=== PATIENT | female | born 2000 | race Caucasian/White ===

== ENCOUNTER 2022-12-19 22:00 | Emergency (ER) | payer OTHER, SELFPAY ==
[2022-12-19 22:08] VITALS: BP 155/106; PULSE 127; RESP 17; TEMP 37.2; O2SAT 98; BMI 43.2
--- NOTE | 2022-12-19 22:41 | HMH.EDGENADL ---
Discharge Plan Disposition Patient Disposition: Home, Self-Care Prescriptions Prescriptions: New ciprofloxacin HCl 0.2 % dropperette 5 drp otic (ear) BID 7 Days Qty: 14 0RF No Action amoxicillin 875 MG tablet 875 mg PO Q12H Qty: 20 0RF Referrals Follow up/Referrals: Jeannie Limon APRN [Primary Care Provider] - See instructions Activity Restrictions/Add. Instructions Additional Instructions/Restrictions: Call your family doctor to establish care for this visit to the emergency department and schedule follow-up within 48 hours to ensure improvement. If you have any worsening of your condition or any other concerning signs or symptoms, return to the emergency department or your primary care doctor for further evaluation. Clinical Impressions Clinical Impression: Otitis externa Qualifiers: Otitis externa type: diffuse Chronicity: acute Laterality: right Qualified Code(s): H60.311 - Diffuse otitis externa, right ear Discharge ED Provider: Yong Avina General Adult HPI General Chief complaint: Ear Stated complaint: R ear pain Time Seen by Provider: 12/19/22 22:07 Mode of Arrival: Family Vehicle Source of Information: Patient Limitations: No Limitations Description of Symptoms (Recalled from ER Triage Doc. by RN): right ear pain for >1 month. states mild swelling underneath ear. low grade fever. History of Present Illness HPI narrative: 22-year-old female with history of numerous ear infections presenting with right ear pain. Patient states she had intermittent right and left ear pain for the last couple of months. Today, having right-sided ear pain. Hurts with application of pressure. No fevers or chills, but patient having hearing deficits such as buzzing and whooshing sounds. No ear drainage. Patient denies sore throat, trauma, or any other concerns. Does not clean her ears with cotton swabs Related Data Previous Rx's Medication Instructions Recorded amoxicillin 875 mg tablet 875 mg PO Q12H #20 tabs 04/14/18 ciprofloxacin HCl 0.2 % ear drops 5 drp otic (ear) BID 7 days #14 ea 12/19/22 in a dropperette Allergies Allergy/AdvReac Type Severity Reaction Status Date / Time No Known Allergies Allergy Verified 04/14/18 12:17 [facility] Disclaimer: The information contained in this section may have been updated after the patient was seen, as this information can be updated by other users. Social History Smoking Status: Unknown if ever smoked second hand exposure: No alcohol intake: never current occupational status: employed Travel in the last 8 weeks: None ROS Obtained: Yes All systems reviewed & no additional complaints except as documented Physical Exam General General appearance: alert, in no apparent distress and other ( ) Head Head exam: atraumatic and normocephalic Eye Eye exam: Present normal appearance, PERRL and EOMI ENT ENT exam: Present mucous membranes moist Neck Neck exam: Present normal inspection, full ROM and trachea midline Respiratory Respiratory exam: Absent respiratory distress, wheezes, stridor, accessory muscle use or prolonged expiratory phase Cardiovascular Cardiovascular exam: Present regular rate and normal rhythm Abdominal Exam Abdominal exam: Present soft; Absent distention, tenderness, guarding, rebound, rigidity or normal bowel sounds Extremities Exam Extremities exam: Absent edema Neurological Exam Neurological exam: Present alert, oriented X3, CN II-XII intact and normal gait; Absent motor sensory deficit Skin Skin exam: Present warm and dry; Absent diaphoresis or erythema Medical Decision Making Medical Records Medical records reviewed: Yes I reviewed the patient's medical records. Morgan Inquiry Pt receiving controlled substance: No Morgan was queried for this patient: No Vital Signs: 12/19/22 22:08 12/19/22 23:05 Temperature 99.0 F 98.9 F Temperature Source Oral Pulse Rate 122 H Pulse Rate [Left Brachial] 127 H
[2022-12-19 23:05] VITALS: BP 168/116; PULSE 122; RESP 18; TEMP 37.2; O2SAT 100
--- NOTE | 2022-12-19 23:08 | PC.NURSE ---
I spoke with Dr. Avina about pts admission and d/c vitals. states he is okay with going ahead and discharging the pt due to the patients pain.
== END 2022-12-19 23:11 | disposition home or self-care (01) ==
PROVIDERS: Emergency Provider Emergency Medicine; PCP Nurse Practitioner Family
DX: H60.311 Diffuse otitis externa, right ear (principal)
CPT/HCPCS: 99283

== ENCOUNTER 2023-08-11 09:23 | Outpatient (CLI) | payer OTHER, SELFPAY ==
[2023-08-11 10:08] LABS: Basophils # 0.1 K/mm3 (0-0.2); Eosinophils # 0.3 K/mm3 (0.0-0.4); Eosinophils % 2.6 % (0.1-12.0); Hematocrit 43.8 % (37.0-47.0); Hemoglobin 14.1 g/dL (12.2-16.2); Lymphocytes # 2.9 K/mm3 (0.7-4.5); Lymphocytes % 26.1 % (10-50); Mean Corpuscular HGB Conc 32.3 g/dL (31.8-35.4); Mean Corpuscular Hemoglobin 30.7 pg (27.0-31.2); Mean Corpuscular Volume 94.9 fl (81-99); Monocytes # 0.5 K/mm3 (0.1-1.0); Monocytes % 4.4 % (1.7-9.3); Neutrophils # 7.4 K/mm3 (1.8-7.8); Platelet Count 391 K/mm3 (142-424); Red Blood Count 4.61 M/mm3 (4.20-5.40); Red Cell Distribution Width 13.2 % (11.5-17.5); White Blood Count 11.1 K/mm3 (4.8-10.8)
[2023-08-11 11:02] LABS: Hemoglobin A1C 5.4 % (4.0-6.0)
[2023-08-11 11:21] LABS: Alanine Aminotransferase 57 U/L (12-78); Albumin Level 4.7 g/dl (3.5-5.0); Albumin/Globulin Ratio 1.6 (1.1-1.8); Alkaline Phosphatase 64 U/L (38-126); Anion Gap 13.4 mEq/L (5-15); Aspartate Amino Transferase 33 U/L (14-36); Bilirubin,Total 0.6 mg/dl (0.2-1.3); Blood Urea Nitrogen 10 mg/dl (7-17); Carbon Dioxide 25 mmol/L (22.0-30.0); Chloride 107 mmol/L (98-107); Estimated Glomerular Filt Rate 106 ml/min (>60); GFR (African American) 128 ML/MIN (>60); Globulin 2.9 g/dL (1.3-3.2); Glucose 82 mg/dl (74-100); Potassium 4.4 mmoL/L (3.5-5.1); Sodium 141 mmol/L (136-145); Total Protein,Serum 7.6 g/dl (6.3-8.2)
[2023-08-11 11:49] LABS: Thyroid Stimulating Hormone 2.02 uIU/mL (0.465-4.68)
[2023-08-12 08:07] LABS: Prolactin 10.5 ng/mL (4.8-33.4)
[2023-08-12 08:16] LABS: Estradiol 45.9 pg/mL (.); FSH 6.2 mIU/mL (.); LH 7.4 mIU/mL (.); Testosterone,Total 42 ng/dL (13-71)
== END 2023-08-11 23:59 | disposition home or self-care (01) ==
LOC: LAB 09:24
PROVIDERS: PCP Nurse Practitioner Family; Visit Provider Obstetrics & Gynecology
DX: E28.2 Polycystic ovarian syndrome (principal); Z31.9 Encounter for procreative management, unspecified
CPT/HCPCS: 36415; 80053; 82626; 82670; 83001; 83002; 83036; 83498; 84146; 84403; 84443; 85025

== ENCOUNTER 2023-08-18 09:44 | Outpatient (CLI) | payer OTHER, SELFPAY ==
--- NOTE | 2023-08-18 09:44 | US_ITS ---
PROCEDURE: US TRANSVAGINAL CLINICAL INDICATION: infertility COMPARISON: No exams were available for comparison FINDINGS: Transvaginal sonographic images of the pelvis were obtained. UTERUS: 6.8 cm x 4.6 cmx 3.3cm anteverted with a combined endometrial thickness of 8.8mm. There is a small nabothian cyst in the cervix. LEFT OVARY: 2.9 cmx2.5cmx3.1cm with a volume of 11.7ml. There are multiple small peripheral follicles. RIGHT OVARY: 2.6 cmx 1.8 cmx3.1cm with a volume of 7.6ml. There are multiple small peripheral follicles. Both ovaries are seen and appear polycystic. Doppler flow to both ovaries are seen. There is no fluid in the cul-de-sac. IMPRESSION: 1. Anteverted uterus normal in shape and size. The endometrium appears normal. 2. Both ovaries have a polycystic appearance. 3. No fluid in the cul-de-sac. Dictated by: Héctor Carter MD 08/18/2023 17:56 Héctor Carter MD in OV 08/18/2023 17:56
== END 2023-08-18 23:59 | disposition home or self-care (01) ==
LOC: RAD 09:44
PROVIDERS: PCP Nurse Practitioner Family; Visit Provider Obstetrics & Gynecology
DX: Z31.9 Encounter for procreative management, unspecified (principal); N92.6 Irregular menstruation, unspecified
CPT/HCPCS: 76830

== ENCOUNTER 2023-10-17 09:39 | Outpatient (CLI) | payer OTHER, SELFPAY ==
[2023-10-17 10:34] LABS: Alanine Aminotransferase 38 U/L (12-78); Albumin Level 4.6 g/dl (3.5-5.0); Albumin/Globulin Ratio 1.3 (1.1-1.8); Alkaline Phosphatase 50 U/L (38-126); Anion Gap 11.6 mEq/L (5-15); Aspartate Amino Transferase 35 U/L (14-36); Bilirubin,Total 0.7 mg/dl (0.2-1.3); Blood Urea Nitrogen 14 mg/dl (7-17); Calcium 9.8 mg/dl (8.4-10.2); Carbon Dioxide 24 mmol/L (22.0-30.0); Chloride 106 mmol/L (98-107); Estimated Glomerular Filt Rate 105 ml/min (>60); GFR (African American) 127 ML/MIN (>60); Globulin 3.5 g/dL (1.3-3.2); Glucose 85 mg/dl (74-100); Potassium 4.6 mmoL/L (3.5-5.1); Sodium 137 mmol/L (136-145); Total Protein,Serum 8.1 g/dl (6.3-8.2)
[2023-10-17 11:05] LABS: Thyroid Stimulating Hormone 3.29 uIU/mL (0.465-4.68)
[2023-10-18 08:21] LABS: FSH 6.8 mIU/mL (.); Progesterone 0.3 ng/mL (.)
[2023-10-18 19:13] LABS: Insulin Level Total 16.6 uIU/mL (2.6-24.9)
== END 2023-10-17 23:59 | disposition home or self-care (01) ==
LOC: LAB 09:40
PROVIDERS: PCP Nurse Practitioner Family; Visit Provider Obstetrics & Gynecology
DX: E28.2 Polycystic ovarian syndrome (principal); N93.9 Abnormal uterine and vaginal bleeding, unspecified
CPT/HCPCS: 36415; 80053; 83001; 83002; 83525; 84144; 84443

== ENCOUNTER 2024-08-16 11:09 | Outpatient (CLI) | payer OTHER, SELFPAY ==
--- NOTE | 2024-08-16 11:30 | FL_ITS ---
FINAL REPORT CLINICAL HISTORY: PCOS,Infertility 203.72mgy 0.17 sec fluoro time FINDINGS: FLUOROSCOPY LESS THAN 1 HOUR HISTORY: Fluoroscopy guidance. FINDINGS: Fluoroscopic guidance was provided for hysterosalpingography. A total of 17 seconds of fluoroscopy time were used. DAP: 203.72 mGy IMPRESSION: As above. Reviewed, Interpreted and Dictated by Luis Armando Kyle MD Transcribed by Laurita Comer Authenticated and [facility]
[2024-08-16] MEDS: IOPAMIDOL-300 (61%) 100ML VIAL 10 ML IV (12:16)
--- NOTE | 2024-08-16 13:05 | HMH.PROCNOTE ---
[facility] Procedure Note Date: 08/16/24 Time: 11:35 Procedure Note:: Findings: bilateral patent fallopian tubes without hydrosalpinx. No endometrial filling defects noted. Patient was positioned in the dorsal lithotomy position. Speculum was inserted. Cervix and vagina was cleansed with Hibiclens. Tenaculum was placed on anterior lip of the cervix. 20 cc of contrast was drawn up into a syringe and attached to the Dm HSG cannula. Contrast was flushed through cannula to remove air bubbles and ensure patency. Cannula was then inserted into the cervix. Fluoroscopy was initiated with 10 cc of contrast injected into the endometrial cavity. Fluoroscopy demonstrated contrast immediately flowing from endometrial cavity through bilateral fallopian tubes revealing patent bilateral fallopian tubes. Cavity appeared normal shape. Cannula was removed from the cervix. Tenaculum was removed from the cervix. Hemostasis was noted. Speculum removed from the vagina. Patient tolerated the procedure well.
== END 2024-08-16 23:59 | disposition home or self-care (01) ==
LOC: RAD 11:10
PROVIDERS: PCP Nurse Practitioner Family; Visit Provider Obstetrics & Gynecology
DX: Z31.9 Encounter for procreative management, unspecified (principal); N92.6 Irregular menstruation, unspecified
CPT/HCPCS: 74740; Q9967